=== PATIENT | female | born 1990 | race Caucasian/White ===

== ENCOUNTER 2018-03-17 12:13 | Emergency (ER) | payer MEDICAID, SELFPAY ==
[2018-03-17 12:15] VITALS: BP 143/89; PULSE 110; RESP 16; TEMP 36.9; O2SAT 99; BMI 23.8
--- NOTE | 2018-03-17 12:50 | ED.VISSUMM ---
- ER Visit Summary Date of Service: 03/17/18 Chief Complaint: Left thumb laceration History of Present Illness: The patient is a 27 F who presents with laceration to her left thumb that occurred today while at work. Patient was using a knife to cut partially when she accidentally cut her left thumb. Patient is right-hand dominant. Patient states her last tetanus was within the last 5 years. Patient states she has been applying pressure to the thumb. Patient admits to some tingling over the tip of her left thumb. Patient denies any weakness. Physical Examination: Vital signs are stable. Patient is afebrile. Patient is in no acute distress. Skin is warm dry. There is a 3 cm full-thickness linear laceration over the dorsal aspect of the left thumb. There is a partial extensor tendon laceration. There is good strength with extension of the IP and MP joints. There are no sensory deficits noted. There are no foreign bodies noted. Capillary refill is less than 2 seconds in all digits. The remaining physical exam is within normal limits. Emergency Department Course and Treatment: Left thumb laceration was cleaned and irrigated with copious amounts of normal saline. The wound was closed with 5 simple #4-0 nylon sutures under sterile technique. Patient tolerated the procedure well. Bacitracin gauze dressing was applied. Patient was also placed in a thumb spica splint. Patient was instructed to follow-up with her primary care physician in 5-7 days. Patient understood and was agreeable with the plan. All questions were answered. Disposition: Discharged home Impression: Left thumb laceration This note was generated with [employer] dictation software. It may contain incorrect words, spelling, and punctuation that were not noted in review of the chart prior to signing ED Disposition - Plan for ED Patient: Disposition: Home or Assisted Living Chief Complaint: Laceration Diagnosis: Laceration of left thumb Instructions: ED Laceration Hand Referrals: Bouchra Negron MD [Primary Care Provider] -
--- NOTE | 2018-03-17 14:22 | ED.DCSUM_ITS ---
- ER Visit Summary Date of Service: 03/17/18 Chief Complaint: [] History of Present Illness: The patient is a 27 F [] Physical Examination: [] Test Results: [] Emergency Department Course and Treatment: [] Treatment Plan: [] Disposition: [] Impression: [] This note was generated with [employer] dictation software. It may contain incorrect words, spelling, and punctuation that were not noted in review of the chart prior to signing ED Disposition - Plan for ED Patient: Disposition: Home or Assisted Living Chief Complaint: Laceration Diagnosis: Laceration of left thumb Instructions: ED Laceration Hand Referrals: Bouchra Negron MD [Primary Care Provider] -
[2018-03-17 14:41] VITALS: BP 116/79; PULSE 70; RESP 18; O2SAT 98
== END 2018-03-17 14:43 | disposition home or self-care (01) ==
PROVIDERS: Emergency Provider Emergency Medicine; Family Provider Family Medicine; PCP Family Medicine
DX: S61.012A Laceration without foreign body of left thumb without damage to nail, initial encounter (principal); S66.222A Laceration of extensor muscle, fascia and tendon of left thumb at wrist and hand level, initial encounter; W26.0XXA Contact with knife, initial encounter; Y93.9 Activity, unspecified; Y92.89 Other specified places as the place of occurrence of the external cause; Y99.0 Civilian activity done for income or pay; Z79.899 Other long term (current) drug therapy
CPT/HCPCS: 12002; 99283

== ENCOUNTER 2019-04-04 15:45 | Emergency (ER) | payer OTHER, SELFPAY ==
[2019-04-04 15:46] VITALS: BP 132/82; PULSE 117; RESP 16; TEMP 36.6; O2SAT 97; BMI 21.0
--- NOTE | 2019-04-04 16:14 | CT_ITS ---
STUDY: CT ABDOMEN AND PELVIS WITHOUT CONTRAST REASON FOR EXAM: Female, 28 years old. Right flank pain. History of kidney stones. Celiac disease. RADIATION DOSAGE (If Supplied By Facility): CTDIvol = ( 6.23 ) mGy, DLP = ( 301.74 ) mGycm TECHNIQUE: Transaxial images were obtained from the dome of the diaphragm to the symphysis pubis without oral contrast, and without intravenous contrast. Sagittal and coronal images were reconstructed. Individualized dose optimization techniques were used for this CT. COMPARISON: None. FINDINGS: The visualized lung bases are unremarkable. The visualized portions of the heart are within normal limits. Normal liver. Normal gallbladder and extrahepatic biliary system. Normal spleen. Normal pancreas. Normal bilateral adrenal glands. Normal right kidney. Normal left kidney. No definite renal or ureteral stones are seen. There is no hydronephrosis on either side. Evaluation of the GI tract is limited by absence of oral contrast. Cannot exclude stomach wall thickening. No dilated loops of bowel or evidence for obstruction. Cannot exclude segmental thickening of the aguilar of the small or large bowel. Cannot exclude enteritis or colitis. Moderate diffuse fecal retention. Appendix within normal limits. Normal abdominal aorta. Normal inferior vena cava. Normal retroperitoneum. Normal urinary bladder. Normal visualized uterus. IUD in typical normal location. Normal abdominal wall. Normal osseous structures. CT/Abdomen/Pelvis without Cont IMPRESSION: Normal unenhanced CT of the abdomen and pelvis. Electronically Signed: Tremaine Sauer MD at 17:15 EDT , Service support ,
[2019-04-04] MEDS: Ketorolac 30 MG/ML Syringe IM (16:19)
[2019-04-04 16:23] LABS: Mucous, Urine 0 SEEN /hpf (<or=2+)
[2019-04-04 16:32] LABS: Color, Urine Yellow (Yellow); Glucose, Dipstick Normal (Normal); Ketone-Dipstick Negative (Negative); Leukocyte Esterase-Dipstick 25 /ul (Negative); Nitrite-Dipstick Negative (Negative); Occult Blood-Urine 25 /ul (Negative); Protein-Dipstick Negative (Negative); Specific Gravity, Urine 1.015 (1.002-1.030); Urine Bilirubin Dipstick Negative (Negative); Urine Clarity Clear (Clear); Urine Urobilinogen Normal (Normal)
[2019-04-04 16:35] LABS: Internal QC Validated? YES +Cl - CLEAR BKGD; Pregnancy, Urine Negative Negative
[2019-04-04 16:43] LABS: White Blood Cells 5-10 SEEN /hpf (0-5)
[2019-04-04 16:44] LABS: Bacteria 2+ /hpf (None Seen); Red Blood Cells-Urine 0-5 SEEN /hpf (0-5); Squamous Epithelial Cells - UA 0-5 SEEN /hpf (5-10); Yeast-Urine 2+ /hpf (None Seen)
--- NOTE | 2019-04-04 17:40 | ED.VIS.GEN ---
History of Present Illness Chief Complaint: Back Narrative: Patient presenting for evaluation secondary to flank pain. Patient reports that she hurt her back approximately a month or so ago. She states that that pain has been relatively continuous, but over the course of the last week she has had right flank pain that goes through to her right chest. No exacerbating relieving factors, but the patient states that she has some urinary hesitancy and dysuria. No blood in her urine. No fevers nausea or vomiting. No numbness or weakness bowel or bladder incontinence. Patient denies any history of kidney stones. Review of systems otherwise negative. Past Medical History - Allergies and Home Meds Allergies/Adverse Reactions: Allergies gluten Allergy (Verified 12/20/16 20:17) Abd cramps/diarrhea Constipation shellfish derived Allergy (Verified 12/20/16 20:17) Swelling citalopram [From Celexa] Adverse Reaction (Verified 12/20/16 20:17) Other Suidical thoughts Primary Care Physician: Gerardo Llanes MD [Primary Care Provider] - 1 Week Past Medical History: None Surgical History: - - D&C recently Smoking Status: Never smoker Review of Systems All systems negative except as indicated Genitourinary: Reports: Dysuria Musculoskeletal: Reports: Back pain Physical Exam Vital Signs/Narrative: Vital Signs Temp Pulse Resp BP Pulse Ox 04/04/19 15:46 97.8 F 117 H 16 132/82 H 97 General: Well nourished, Well developed, No Acute Distress Head: Normocephalic, Atraumatic Eyes: Perrl, EOMI ENT: Moist mucous membranes, No rhinorrhea Neck: Supple, Nontender Cardiovascular: Regular rate, Regular rhythm, No murmurs Respiratory: No distress, CTA bilaterally, Chest nontender Abdomen: Soft, Nontender, Nondistended, Normal bowel sounds Back: Normal Inspection, - - Right sided paraspinal thoracic tenderness with some tenderness over the right flank Extremities: Nontender, No edema Skin: Normal color, No rash Neurological: Alert, Oriented x3, Cranial nerves II-XII grossly intact, Normal Strength, Normal Sensation, - - 5 out of 5 strength at the hip knee ankle and foot normal sensation over all dermatomes Psychological: Normal affect, Normal Mood Diagnostic/Tx/Re-eval - Medical Decision Making Patient presented with flank pain. CT imaging was obtained and was negative for stone or acute process. Urinalysis shows some evidence of infection. Patient does not have any evidence of sepsis. I believe that she is appropriate for outpatient treatment. Patient will be sent home with a course of Bactrim, she was given strict return instructions, she voiced understanding of these and the patient was discharged. ED Disposition - Plan for ED Patient: Disposition: Home or Assisted Living Diagnosis: UTI (urinary tract infection) Instructions: Urinary Tract Infections in Women Prescriptions: Smz/Tmp Ds [Bactrim Ds] 1 tab PO BID #14 tab Prescription Printed Referrals: Gerardo Llanes MD [Primary Care Provider] - 1 Week
[2019-04-04] MEDS: Smz/Tmp Ds Tablet 1 TABLET PO (17:58)
[2019-04-04 17:59] VITALS: BP 104/74; PULSE 83; RESP 16; O2SAT 100
== END 2019-04-04 18:00 | disposition home or self-care (01) ==
PROVIDERS: Emergency Provider Emergency Medicine; Family Provider Family Medicine; PCP Family Medicine
DX: N39.0 Urinary tract infection, site not specified (principal); Z79.899 Other long term (current) drug therapy
CPT/HCPCS: 74176; 81001; 81025; 96372; 99283

== ENCOUNTER 2019-04-22 11:04 | Emergency (ER) | payer OTHER, SELFPAY ==
[2019-04-22 11:04] VITALS: BP 120/64; PULSE 100; RESP 16; TEMP 36.6; O2SAT 97; BMI 22.5
--- NOTE | 2019-04-22 11:20 | EKG12_ITS ---
Test Reason : CP Blood Pressure : / mmHG Vent. Rate : 097 BPM Atrial Rate : 097 BPM P-R Int : 114 ms QRS Dur : 080 ms QT Int : 340 ms P-R-T Axes : 081 089 069 degrees QTc Int : 431 ms Normal sinus rhythm with sinus arrhythmia Possible Biatrial enlargement Abnormal ECG Confirmed by LEROY CASTILLO, HUONG ([id number]), non linear editor MARSHA ERNST ([id number]) on 04/23/2019 2:11:00 PM Referred By: OCTAVIA Confirmed By:HUONG HARPER MD
--- NOTE | 2019-04-22 11:21 | CT_ITS ---
STUDY: CTA CHEST REASON FOR EXAM: Female, 28 years old. Chest pain, rib pain. RADIATION DOSAGE (If Supplied By Facility): CTDIvol = ( 5.12 ) mGy, DLP = ( 130.00 ) mGycm TECHNIQUE: The examination was performed with the intravenous administration of 75 IV Isovue 370. Post-processing of the angiographic images was performed, with multiplanar reformation and 3D reconstruction. Individualized dose optimization techniques were used for this CT. COMPARISON: None. FINDINGS: Normal enhancement of the main pulmonary artery and right and left pulmonary arteries. Normal enhancement of the bilateral peripheral pulmonary arteries. There is no demonstrated pulmonary embolism. Normal thoracic aorta and visualized great vessels. There is no demonstrated aortic dissection. Normal heart and pericardium. Normal mediastinum. Normal hilar regions. Normal visualized trachea and bronchi. The lungs are well expanded. Normal pulmonary parenchyma. Normal pleura. Normal chest wall structures. Normal osseous structures. Normal visualized upper abdomen. CT/CTA Chest W/WO Contrast IMPRESSION: Normal CTA chest examination, without a demonstrated pulmonary embolism or arterial dissection. Electronically Signed: Shaka Sheehan MD at 12:36 EDT Tel , Service support ,
--- NOTE | 2019-04-22 11:33 | ED.VISSUMM ---
- ER Visit Summary Date of Service: 04/22/19 Chief Complaint: Chest pain History of Present Illness: The patient is a 28 F who presents the emergency department with a right chest pain. Patient states that she was seen about 3 weeks ago for a right side pain that was felt to possibly be urinary tract related. She had a CT scan of the abdomen pelvis without contrast is essentially negative. She Bactrim and states symptoms never went away. She followed up with primary care about a week and a half ago and had blood work that came back negative and was felt that this is musculoskeletal and she received naproxen and Flexeril. States when she woke up today she went to pick child up and felt severe pain and took those medicines are not helping. She states that it is severe worse with movement touch and coughing. No fevers. No rashes. Physical Examination: Afebrile vital signs are stable Gen: Well-nourished well-developed Head: Normocephalic atraumatic Eyes: Perrl EOMI ENT: TMs clear no rhinorrhea moist mucous membranes Neck: Supple no lymphadenopathy no JVD nontender CVS: Regular rate rhythm no murmurs normal S1-S2 Respiratory: No distress clear to auscultation bilaterally chest nontender Abdomen: Soft nontender nondistended normal bowel sounds no masses Back: Palpation of the right scapular region and along the mid thoracic ribs into the axilla and anterior chest wall. Extremity: Nontender no edema Skin: Normal color no rash Neuro: alert orientated ?3 CN II-XII intact normal strength sensation reflexes gait cerebellar Psych: She does tearful but eventually stops crying talks without tears. Test Results: EKG shows a normal sinus rhythm at a rate of 97. CBC CMP negative. Urinalysis is negative troponin is negative urine drug screen is positive for cannabinoids. CT Fernanda of the chest is also negative. Emergency Department Course and Treatment: Received Toradol and Valium and has been improved. I believe this to be musculoskeletal in nature. Patient will be discharged home with supportive care instructions to avoid heavy lifting or strenuous activity encourage her to follow-up with her primary care physician Impression: 1. Muscular skeletal back and chest pain This note was generated with [employer] dictation software. It may contain incorrect words, spelling, and punctuation that were not noted in review of the chart prior to signing ED Disposition - Plan for ED Patient: Disposition: Home or Assisted Living Instructions: Chest Wall Strain Prescriptions: Diazepam [Valium] 5 mg PO Q8 PRN #12 tab PRN Reason: Muscle Spasm Prescription Printed Referrals: Gerardo Llanes MD [Primary Care Provider] - 1 Week
[2019-04-22] MEDS: diazePAM 5 MG Tablet PO (11:39)
[2019-04-22] MEDS: Ketorolac 30 MG/ML Syringe IV (11:39)
[2019-04-22 11:45] LABS: Absolute Lymphocyte Count 1.64 X10^3/uL (0.83-4.51); Absolute Neutrophil Count 2.6 X10^3/uL (2.0-7.7); Basophil# 0.07 X10^3/uL; Basophil% 1.4 % (0-1); Eosinophil# 0.26 X10^3/uL; Eosinophils% 5.2 % (0-5); Hematocrit 40.3 % (37-47); Hemoglobin 13.1 g/dL (12.0-15.0); Lymphocyte # 1.64 X10^3/ul (4.0); Lymphocyte % 32.8 % (19-41); Mean Corp Hgb Conc 32.5 g/dL (32-36); Mean Corpuscular Hgb 31.1 pg (27.0-32.0); Mean Corpuscular Volume 95.7 fL (81-99); Mean Platelet Vol. 9.8 fl (6.2-12.0); Monocyte# 0.47 X10^3/uL; Monocyte% 9.4 % (0-10); NRBC Flagged by Analyzer 0 % (0-5); Neutrophil # 2.55 X10^3/uL (2.7-7.7); Platelet Count 255 K/mm3 (150-450); RBC Distribution Width SD 46.5 fl (35.1-43.9); Red Blood Count 4.21 M/mm3 (4.2-5.4)
[2019-04-22 11:58] LABS: Bacteria 0 SEEN /hpf (None Seen); Mucous, Urine 0 SEEN /hpf (<or=2+); Red Blood Cells-Urine 0 SEEN /hpf (0-5); White Blood Cells 0 SEEN /hpf (0-5)
[2019-04-22 11:59] LABS: ALB/GLOB Ratio 1.4 RATIO (0.9-2.4); AST(SGOT) 10 U/L (15-37); Alanine Aminotransfer ALT/SGPT 14 U/L (13-56); Albumin, Serum 4.3 g/dL (3.2-5.0); Alkaline Phosphatase 50 U/L (45-117); Anion Gap 4 (5-15); BUN 14 mg/dL (7-18); BUN/Creat Ratio 16.2 RATIO (10-20); Calcium,Total 8.9 mg/dL (8.5-10.1); Chloride 105 mmol/L (98-107); Creatinine, Serum 0.86 mg/dL (0.55-1.02); EST Glomerular Filtration Rate 83 mL/min (>60); Est Glom Filt Rate - Afr Amer 100 mL/min (>60); Estimated Creatinine Clearance 77.03 ml/min; Globulin 3.1 g/dL (2.2-4.2); Glucose 90 mg/dL (74-106); Potassium 4.6 mmol/L (3.5-5.1); Protein, Total 7.4 g/dL (6.4-8.2); Sodium Level 140 mmol/L (136-145)
[2019-04-22 12:02] LABS: Color, Urine Yellow (Yellow); Glucose, Dipstick Normal (Normal); Ketone-Dipstick Negative (Negative); Leukocyte Esterase-Dipstick Negative /ul (Negative); Nitrite-Dipstick Negative (Negative); Occult Blood-Urine Negative /ul (Negative); Protein-Dipstick Negative (Negative); Specific Gravity, Urine 1.005 (1.002-1.030); Urine Bilirubin Dipstick Negative (Negative); Urine Clarity Sl. Cloudy (Clear); Urine Urobilinogen Normal (Normal)
[2019-04-22 12:04] LABS: Internal QC Validated? YES +Cl - CLEAR BKGD
[2019-04-22 12:05] LABS: Pregnancy, Urine Negative Negative
[2019-04-22 12:08] LABS: Squamous Epithelial Cells - UA 0-5 SEEN /hpf (5-10)
[2019-04-22 12:25] LABS: Amphetamine Urine VISTA NEGATIVE (<1000 ng/mL); Barbiturate Urine VISTA NEGATIVE (< 200 ng/mL); Benzodiazepine Urine VISTA NEGATIVE (< 200 ng/mL); Cocaine Urine VISTA NEGATIVE (< 300 ng/mL); Ecstacy Urine VISTA NEGATIVE (< 500 ng/mL); Methadone Urine VISTA NEGATIVE (< 300 ng/mL); PCP Urine VISTA NEGATIVE (< 25 ng/mL); THC Urine VISTA POSITIVE (< 50 ng/mL); Vista UDS pH Range 6
[2019-04-22 13:15] VITALS: BP 119/74; PULSE 61; RESP 16; O2SAT 97
== END 2019-04-22 13:15 | disposition home or self-care (01) ==
PROVIDERS: Emergency Provider Emergency Medicine; Family Provider Family Medicine; PCP Family Medicine
DX: R07.89 Other chest pain (principal); M54.9 Dorsalgia, unspecified; R05 Cough; F32.9 Major depressive disorder, single episode, unspecified; Z79.899 Other long term (current) drug therapy; Z87.891 Personal history of nicotine dependence
CPT/HCPCS: 71275; 80053; 80307; 81001; 81025; 84484; 85025; 93005; 96374; 99284; Q9967; A4216

== ENCOUNTER 2019-08-11 17:13 | Emergency (ER) | payer BC, SELFPAY ==
[2019-08-11] VITALS (9 sets, daily range): BP systolic 116–134; BP diastolic 60–94; PULSE 81–126; RESP 16–18; TEMP 37.2–37.6; O2SAT 97–100; BMI 22.3
--- NOTE | 2019-08-11 19:05 | ED.VISSUMM ---
- ER Visit Summary Date of Service: 08/11/19 Chief Complaint: Syncopal episodes History of Present Illness: The patient is a 28 F who presents with syncopal episodes that have been intermittent over the past 3 weeks. Patient states she has been passing out losing consciousness. Patient is unsure how long she is out for. Patient admits to subjective fevers at home. Patient states her temperature is 100. Patient also admits to some intermittent sweats. Patient admits to a sore throat and rhinorrhea. Patient admits to some nausea but denies any vomiting. Patient denies any chest pain but admits to some slight shortness of breath. Physical Examination: Vital signs are stable except for tachycardia of 126. Patient is afebrile. Patient is in no acute distress. Oral mucosa is pink and moist. Neck is supple. Trachea is midline. There is no JVD. Heart was regular rate and rhythm. Lungs are clear and equal bilaterally. Abdomen is soft. Bowel sounds are normal. There is no tenderness. Cranial nerves II through XII are intact. There are no focal motor or sensory deficits noted. Test Results: EKG showed a normal sinus rhythm with a rate of 77. There are no acute ST or T wave changes. CBC, comprehensive metabolic profile, urinalysis, troponin, and serum hCG were obtained were all normal. CT scan of the brain was obtained. There is no acute intracranial abnormality. CTA of the chest was obtained. There is no evidence of pulmonary embolism. Emergency Department Course and Treatment: Patient was given IV fluids. Patient felt better on reevaluation. Patient was instructed to follow-up with her primary care physician in 5 to 7 days for further evaluation of her syncope. Patient understood and was agreeable with the plan. All questions were answered. Disposition: Discharge home Impression: Syncope This note was generated with [employer] dictation software. It may contain incorrect words, spelling, and punctuation that were not noted in review of the chart prior to signing ED Disposition - Plan for ED Patient: Disposition: Home or Assisted Living Diagnosis: Syncope Instructions: SYNCOPE, Unk Cause Referrals: Gerardo Llanes MD [Primary Care Provider] - 3-5 Days
--- NOTE | 2019-08-11 19:07 | CT_ITS ---
STUDY: CTA CHEST REASON FOR EXAM: Female, 28 years old. SYNCOPE, DIZZINESS, WEAKNESS RADIATION DOSAGE (If Supplied By Facility): CTDIvol = ( 6.64 ) mGy, DLP = ( 142.90 ) mGycm TECHNIQUE: The examination was performed with the intravenous administration of 75 CC ISOVUE 370. Post-processing of the angiographic images was performed, with multiplanar reformation and 3D reconstruction. Individualized dose optimization techniques were used for this CT. COMPARISON: April 22, 2019 FINDINGS: Normal enhancement of the main pulmonary artery and right and left pulmonary arteries. Normal enhancement of the bilateral peripheral pulmonary arteries. There is no demonstrated pulmonary embolism. Normal thoracic aorta and visualized great vessels. There is no demonstrated aortic dissection. Normal heart and pericardium. Normal mediastinum. Normal hilar regions. Normal visualized trachea and bronchi. The lungs are well expanded. Lungs are clear of acute infiltration. There is a tiny calcified granuloma in right upper lobe Normal pleura. Normal chest wall structures. Normal osseous structures. Normal visualized upper abdomen. No significant change since prior exam CT/CTA Chest W/WO Contrast IMPRESSION: Tiny calcified granuloma in right upper lobe. No acute abnormality. No evidence for pulmonary embolus Electronically Signed: Osbaldo Umana MD at 21:40 EST , Service support ,
--- NOTE | 2019-08-11 19:07 | CT_ITS ---
STUDY: CT BRAIN WITHOUT CONTRAST REASON FOR EXAM: Female, 28 years old. SYNCOPE, DIZZINESS, WEAKNESS RADIATION DOSAGE (If Supplied By Facility): CTDIvol = ( 44.99 ) mGy, DLP = ( 745.49 ) mGycm TECHNIQUE: Transaxial CT imaging of the brain was performed without administration of intravenous contrast material. Individualized dose optimization techniques were used for this CT. COMPARISON: No relevant priors. FINDINGS: Normal soft tissue structures. Normal calvarium. Normal size ventricles and extra-axial spaces for the patient''s age. Normal white matter tracts of the cerebral hemispheres. Normal basal ganglia and thalami. Normal brainstem. Normal cerebellum. There is no intracranial hemorrhage. There are no findings of an acute ischemic infarction. Normal visualized paranasal sinuses. CT/Brain/Head without Contrast IMPRESSION: Normal unenhanced CT scan of the brain. Electronically Signed: Osbaldo Umana MD at 21:35 EST , Service support ,
[2019-08-11] MEDS: 0.9% Normal Saline 1,000 ML 1000 ML IV (19:33)
[2019-08-11 19:42] LABS: Bacteria 0 SEEN /hpf (None Seen); Mucous, Urine 0 SEEN /hpf (<or=2+); Red Blood Cells-Urine 0 SEEN /hpf (0-5); White Blood Cells 0 SEEN /hpf (0-5)
[2019-08-11 19:43] LABS: Color, Urine Yellow (Yellow); Glucose, Dipstick Normal (Normal); Ketone-Dipstick Negative (Negative); Leukocyte Esterase-Dipstick Negative /ul (Negative); Nitrite-Dipstick Negative (Negative); Occult Blood-Urine 10 /ul (Negative); Protein-Dipstick Negative (Negative); Specific Gravity, Urine 1.015 (1.002-1.030); Urine Bilirubin Dipstick Negative (Negative); Urine Clarity Clear (Clear); Urine Urobilinogen Normal (Normal)
[2019-08-11 19:44] LABS: Absolute Lymphocyte Count 2.14 X10^3/uL (0.83-4.51); Absolute Neutrophil Count 6.6 X10^3/uL (2.0-7.7); Basophil# 0.07 X10^3/uL; Basophil% 0.7 % (0-1); Eosinophil# 0.12 X10^3/uL; Eosinophils% 1.3 % (0-5); Hematocrit 43.1 % (37-47); Hemoglobin 14.1 g/dL (12.0-15.0); Lymphocyte # 2.14 X10^3/ul (4.0); Lymphocyte % 22.6 % (19-41); Mean Corp Hgb Conc 32.7 g/dL (32-36); Mean Corpuscular Hgb 31.1 pg (27.0-32.0); Mean Corpuscular Volume 95.1 fL (81-99); Mean Platelet Vol. 9.7 fl (6.2-12.0); Monocyte# 0.47 X10^3/uL; NRBC Flagged by Analyzer 0 % (0-5); Neutrophil # 6.62 X10^3/uL (2.7-7.7); Platelet Count 305 K/mm3 (150-450); RBC Distribution Width CV 13.2 % (11.6-14.6); RBC Distribution Width SD 46.8 fl (35.1-43.9); Red Blood Count 4.53 M/mm3 (4.2-5.4); White Blood Count 9.5 K/mm3 (4.4-11.0)
[2019-08-11 20:34] LABS: Internal QC Validated? YES +Cl - CLEAR BKGD; Pregnancy, Serum, hCG Quali. NEGATIVE Negative
[2019-08-11 20:38] LABS: Squamous Epithelial Cells - UA 0-5 SEEN /hpf (5-10)
[2019-08-11 20:44] LABS: ALB/GLOB Ratio 1.2 RATIO (0.9-2.4); AST(SGOT) 20 U/L (15-37); Alanine Aminotransfer ALT/SGPT 23 U/L (13-56); Albumin, Serum 4.4 g/dL (3.2-5.0); Alkaline Phosphatase 52 U/L (45-117); Anion Gap 4 (5-15); BUN 10 mg/dL (7-18); BUN/Creat Ratio 9.9 RATIO (10-20); Calcium,Total 9.1 mg/dL (8.5-10.1); Chloride 108 mmol/L (98-107); Creatinine, Serum 1.01 mg/dL (0.55-1.02); EST Glomerular Filtration Rate 69 mL/min (>60); Est Glom Filt Rate - Afr Amer 83 mL/min (>60); Estimated Creatinine Clearance 65.59 ml/min; Globulin 3.6 g/dL (2.2-4.2); Glucose 113 mg/dL (74-106); Potassium 3.5 mmol/L (3.5-5.1); Sodium Level 140 mmol/L (136-145)
--- NOTE | 2019-08-11 22:17 | EKG12_ITS ---
Test Reason : DYSRHYTHMIA Blood Pressure : / mmHG Vent. Rate : 077 BPM Atrial Rate : 077 BPM P-R Int : 138 ms QRS Dur : 080 ms QT Int : 380 ms P-R-T Axes : 064 081 055 degrees QTc Int : 430 ms Normal sinus rhythm Normal ECG Confirmed by LEROY CASTILLO, HUONG ([id number]), legal editor SAWYER CAMPOS ([id number]) on 08/13/2019 11:01:06 AM Referred By: SAGE Confirmed By:HUONG HARPER MD
== END 2019-08-11 23:08 | disposition home or self-care (01) ==
PROVIDERS: Emergency Provider Emergency Medicine; Family Provider Family Medicine; PCP Family Medicine
DX: R55 Syncope and collapse (principal); J02.9 Acute pharyngitis, unspecified; J34.89 Other specified disorders of nose and nasal sinuses; R11.0 Nausea; R00.0 Tachycardia, unspecified; R06.02 Shortness of breath; M54.2 Cervicalgia; M54.9 Dorsalgia, unspecified; F32.9 Major depressive disorder, single episode, unspecified; F41.9 Anxiety disorder, unspecified; Z79.899 Other long term (current) drug therapy
CPT/HCPCS: 70450; 71275; 80053; 81001; 84484; 84703; 85025; 93005; 96360; 99285; J7030; Q9967; A4216

== ENCOUNTER 2020-05-30 15:42 | Emergency (ER) | payer OTHER, SELFPAY ==
[2019-08-11 17:14] VITALS: BMI 22.3
[2020-05-30 15:42] VITALS: BP 134/86; PULSE 106; RESP 16; TEMP 36.6; O2SAT 99; BMI 22.1
--- NOTE | 2020-05-30 16:18 | CT_ITS ---
STUDY: CT BRAIN WITHOUT CONTRAST REASON FOR EXAM: Female, 29 years old. HEADACHE IN BASE OF RIGHT SKULL RADIATION DOSAGE (If Supplied By Facility): CTDIvol = ( 44.99 ) mGy, DLP = ( 796.11 ) mGycm TECHNIQUE: Transaxial CT imaging of the brain was performed without administration of intravenous contrast material. Individualized dose optimization techniques were used for this CT. COMPARISON: 08/11/2019 FINDINGS: Normal soft tissue structures. Normal calvarium. Normal size ventricles and extra-axial spaces for the patient''s age. Normal white matter tracts of the cerebral hemispheres. Normal basal ganglia and thalami. Normal brainstem. Normal cerebellum. There is no intracranial hemorrhage. There are no findings of an acute ischemic infarction. Normal visualized paranasal sinuses. CT/Brain/Head without Contrast IMPRESSION: Normal unenhanced CT scan of the brain. Electronically Signed: iDma Hall MD ([place]) at 16:50 EDT , Service support ,
--- NOTE | 2020-05-30 16:18 | EKG12_ITS ---
Test Reason : GENERAL ILLNESS Blood Pressure : / mmHG Vent. Rate : 093 BPM Atrial Rate : 093 BPM P-R Int : 116 ms QRS Dur : 076 ms QT Int : 346 ms P-R-T Axes : 067 066 042 degrees QTc Int : 430 ms Normal sinus rhythm Normal ECG Confirmed by BG CASTILLO, RUBY ([id number]), news video editor BEKA AYERS ([id number]) on 06/01/2020 10:28:16 AM Referred By: PC Confirmed By:RUBY PEDERSON MD
--- NOTE | 2020-05-30 16:20 | ED.VIS.GEN ---
History of Present Illness Chief Complaint: General Illness Narrative: Patient presents with generalized weakness, lightheadedness, a posterior headache that started gradually. She did have some alcohol last night and wondered through the words. Per her boyfriend she was acting somewhat bizarre. She seems to be acting normal today. She denies any fever or chills. She has no chest pain or shortness of breath she has no lower extremity edema or calf pain. She has quite a bit of lightheadedness, she feels like she is going to pass out however she tells me that she has not passed out yet. She denies , she has an IUD. Past Medical History - Allergies and Home Meds Allergies/Adverse Reactions: Allergies clindamycin Allergy (Verified 05/30/20 15:45) Hives gluten Allergy (Verified 05/30/20 15:45) Abd cramps/diarrhea Constipation shellfish derived Allergy (Verified 05/30/20 15:45) Swelling citalopram [From Celexa] Adverse Reaction (Verified 05/30/20 15:45) Other Suidical thoughts Primary Care Physician: Gerardo Llanes MD [Primary Care Provider] - Past Medical History: None Surgical History: - - D&C recently Smoking Status: Former smoker Review of Systems All systems negative except as indicated General: Denies: Fever Eyes: Denies: Visual changes - bilaterally ENT: Denies: Sore throat Cardiovascular: Denies: Chest pain, Palpitations, Heart racing Respiratory: Denies: Dyspnea, Cough Gastrointestinal: Denies: Abdominal pain, Nausea, Vomiting Genitourinary: Denies: Dysuria Musculoskeletal: Denies: Myalgias, Neck pain, Back pain Skin: Denies: Rash Neurological: Reports: Headache. Denies: Weakness, Parasthesia, Numbness Psych: Denies: Anxiety Endocrine: Denies: Polydipsia Hematologic: Denies: Easy bruising, Easy bleeding Allergy: Denies: Swelling of the mouth, Swelling of the tongue Physical Exam Vital Signs/Narrative: Vital Signs Temp Pulse Resp BP Pulse Ox 05/30/20 15:42 97.8 F 106 H 16 134/86 H 99 General: Well nourished, - - Does not appear in any distress, she does not appear anxious. She is a well-appearing female Head: Normocephalic Eyes: Perrl, EOMI. Negative for: Pale conjunctiva ENT: Dry mucous membranes Neck: Supple Cardiovascular: Regular rate, Regular rhythm Respiratory: No distress, CTA bilaterally Abdomen: Soft, Nontender Back: Nontender. Negative for: Normal Inspection Extremities: Nontender. Negative for: No edema Skin: Normal color Neurological: Alert, Oriented x3, Cranial nerves II-XII grossly intact, Normal Strength Psychological: Normal affect Diagnostic/Tx/Re-eval - Rhythm Strip Rhythm Strip: Sinus Rhythm Rate: 93 Ectopy: None - EKG Initial EKG Interpretation: - - Sinus rhythm with a rate of 93. Normal MT and QTc intervals. No ischemic changes. Interpreted by emergency doctor - Medical Decision Making She has a normal ED work-up. She is got nonspecific symptoms, I am unsure about the etiology of her symptoms I do not believe there is anything emergent at this time she can follow-up with her PCP for further testing. ED Disposition - Plan for ED Patient: Disposition: Home or Assisted Living Diagnosis: Dizziness Instructions: ED Dizziness [facility] Referrals: Gerardo Llanes MD [Primary Care Provider] - 3-5 Days
[2020-05-30] MEDS: 0.9% Normal Saline 1,000 ML 1000 ML IV (16:30)
--- NOTE | 2020-05-30 16:40 | RAD_ITS ---
STUDY: X-RAY CHEST REASON FOR EXAM: Female, 29 years old. C/O CHEST, BACK AND SHOULDER PRESSURE WITH INABILITY TO CONTROL HER BODY MOVEMENTS. TECHNIQUE: AP COMPARISON: None. FINDINGS: EKG leads project over the chest. The lungs are clear and expanded. There is no demonstrated pleural abnormality. Normal size heart. Normal mediastinum and delphine. Normal visualized pulmonary arteries. Normal visualized aortic arch and descending thoracic aorta. Normal visualized thoracic spine. There is a small fracture of the posterolateral right sixth rib with some callus formation. There is no demonstrated abnormality of the visualized soft tissue structures of the upper abdomen. RAD/Chest 1 View (Portable) IMPRESSION: 1. No acute cardiopulmonary process. 2. Right posterior/lateral right sixth rib fracture, incompletely healed. Electronically Signed: Dima Hall MD ([place]) at 17:05 EDT , Service support ,
[2020-05-30 16:46] LABS: Absolute Lymphocyte Count 1.74 X10^3/uL (0.83-4.51); Absolute Neutrophil Count 5.1 X10^3/uL (2.0-7.7); Basophil# 0.06 X10^3/uL; Basophil% 0.8 % (0-1); Eosinophil# 0.15 X10^3/uL; Eosinophils% 1.9 % (0-5); Hematocrit 40.3 % (37-47); Hemoglobin 13.4 g/dL (12.0-15.0); Lymphocyte # 1.74 X10^3/ul (4.0); Lymphocyte % 22.6 % (19-41); Mean Corp Hgb Conc 33.3 g/dL (32-36); Mean Corpuscular Hgb 31.8 pg (27.0-32.0); Mean Corpuscular Volume 95.5 fL (81-99); Mean Platelet Vol. 9.8 fl (6.2-12.0); Monocyte# 0.62 X10^3/uL; NRBC Flagged by Analyzer 0 % (0-5); Neutrophil # 5.12 X10^3/uL (2.7-7.7); Neutrophil % 66.4 % (47-70); Platelet Count 323 K/mm3 (150-450); RBC Distribution Width CV 13.3 % (11.6-14.6); RBC Distribution Width SD 46.8 fl (35.1-43.9); Red Blood Count 4.22 M/mm3 (4.2-5.4); White Blood Count 7.7 K/mm3 (4.4-11.0)
[2020-05-30 17:02] LABS: ALB/GLOB Ratio 1.2 RATIO (0.9-2.4); AST(SGOT) 15 U/L (15-37); Alanine Aminotransfer ALT/SGPT 20 U/L (13-56); Albumin, Serum 4.1 g/dL (3.2-5.0); Alkaline Phosphatase 50 U/L (45-117); Anion Gap 5 (5-15); BUN 11 mg/dL (7-18); Calcium,Total 8.5 mg/dL (8.5-10.1); Chloride 109 mmol/L (98-107); Creatinine, Serum 0.85 mg/dL (0.55-1.02); EST Glomerular Filtration Rate 84 mL/min (>60); Est Glom Filt Rate - Afr Amer 102 mL/min (>60); Estimated Creatinine Clearance 80.78 ml/min; Globulin 3.4 g/dL (2.2-4.2); Glucose 91 mg/dL (74-106); Protein, Total 7.5 g/dL (6.4-8.2); Sodium Level 142 mmol/L (136-145); Thyroid Stim Hormone (TSH) 0.67 uIU/mL (0.358-3.74)
[2020-05-30 17:19] LABS: Mucous, Urine 0 SEEN /hpf (<or=2+)
[2020-05-30 17:27] LABS: Color, Urine Yellow (Yellow); Glucose, Dipstick Normal (Normal); Ketone-Dipstick Negative (Negative); Leukocyte Esterase-Dipstick 25 /ul (Negative); Nitrite-Dipstick Negative (Negative); Occult Blood-Urine 25 /ul (Negative); Protein-Dipstick Negative (Negative); Specific Gravity, Urine 1.015 (1.002-1.030); Urine Bilirubin Dipstick Negative (Negative); Urine Clarity Clear (Clear); Urine Urobilinogen Normal (Normal)
[2020-05-30 17:39] LABS: Bacteria RARE /hpf (None Seen); Internal QC Validated? YES +Cl - CLEAR BKGD; Pregnancy, Urine Negative Negative; Red Blood Cells-Urine 0-5 SEEN /hpf (0-5); Squamous Epithelial Cells - UA 0-5 SEEN /hpf (5-10); White Blood Cells 0-5 SEEN /hpf (0-5)
[2020-05-30 17:56] VITALS: BP 119/75; PULSE 67; RESP 15; O2SAT 96
== END 2020-05-30 17:57 | disposition home or self-care (01) ==
PROVIDERS: Emergency Provider Emergency Medicine; PCP Family Medicine
DX: R42 Dizziness and giddiness (principal); R53.1 Weakness; R51.9 Headache, unspecified; Z79.899 Other long term (current) drug therapy; Z97.5 Presence of (intrauterine) contraceptive device; Z87.891 Personal history of nicotine dependence
CPT/HCPCS: 70450; 71045; 80053; 81001; 81025; 84443; 84484; 85025; 93005; 96360; 99283; J7030; A4216

== ENCOUNTER 2020-08-01 10:39 | Emergency (ER) | payer SELFPAY ==
[2020-08-01 10:40] VITALS: BP 133/78; PULSE 88; RESP 16; TEMP 36.6; O2SAT 97; BMI 22.3
--- NOTE | 2020-08-01 10:57 | ED.VIS.GEN ---
History of Present Illness Chief Complaint: Other, Pain/Inj Informant: Patient Narrative: Patient is a 29-year-old female who presents to the emergency department for right chest wall pain. 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 At some point she twisted too far and had severe pain on the right side. She woke up this morning and had difficulty moving due to the pain. She believes that she has broken ribs on that side. No recent trauma to the area. She feels like she cannot take a deep breath in due to the pain. No chest pain elsewhere besides on the right. No history of DVT/PE. No history of CAD. She has been coughing and is completing a course of antibiotics and steroids for this. She did have a coronavirus test which was negative. Past Medical History - Allergies and Home Meds Allergies/Adverse Reactions: Allergies clindamycin Allergy (Verified 08/01/20 10:47) Hives gluten Allergy (Verified 08/01/20 10:47) Abd cramps/diarrhea Constipation shellfish derived Allergy (Verified 08/01/20 10:47) Swelling citalopram [From Celexa] Adverse Reaction (Verified 08/01/20 10:47) Other Suidical thoughts Primary Care Physician: Gerardo Llanes MD [Primary Care Provider] - 3-5 Days if not improving Surgical History: - - D&C recently Smoking Status: Former smoker Review of Systems All systems negative except as indicated General: Denies: Chills, Fever, Sweats Eyes: Denies: Visual changes - bilaterally, Diplopia ENT: Denies: Rhinorrhea, Sore throat Cardiovascular: Reports: Chest pain - Chest wall on the right lateral side. Denies: Palpitations Respiratory: Reports: Dyspnea, Cough. Denies: Dyspnea on exertion Gastrointestinal: Denies: Abdominal pain, Nausea, Vomiting Genitourinary: Denies: Dysuria, Hematuria, Frequency Musculoskeletal: Denies: Back pain, Extremity Pain Skin: Denies: Rash, Wounds Neurological: Denies: Headache, Weakness, Numbness Physical Exam Vital Signs/Narrative: Vital Signs Temp Pulse Resp BP Pulse Ox 08/01/20 10:40 97.8 F 88 16 133/78 H 97 Inital Vital Signs reviewed: Yes General: Well nourished, Well developed, No Acute Distress, - - When I walked into the room patient holding phone up to her talking in full sentences. Once hanging up she refuses to move her arms and shoulders. Head: Normocephalic, Atraumatic Eyes: Perrl, EOMI ENT: Moist mucous membranes, No rhinorrhea Neck: Supple, Nontender Cardiovascular: Regular rate, Regular rhythm, No murmurs Respiratory: No distress, CTA bilaterally - Patient refuses to take a deep breath in so exam is limited., Chest tenderness - Right lateral ribs. No crepitus palpable. No overlying skin changes. Abdomen: Soft, Nontender, Nondistended Back: Nontender, Normal Inspection Extremities: Nontender, No edema. Negative for: Calf Tenderness Skin: Normal color, No rash Neurological: Alert, Oriented x3, Normal Strength, Normal Sensation Psychological: Normal affect, Normal Mood Diagnostic/Tx/Re-eval Chest X-Ray - ED: 2 View - 2 view x-ray interpreted by myself. No acute consolidation. No pneumothorax. There does appear to be an old rib fracture on the right lateral side at the sixth rib. Normal cardiac silhouette. Normal mediastinum. No acute cardiopulmonary abnormalities. - Medical Decision Making Patient presents the emerge department for right rib pain. This all started after she twisted while sweeping yesterday. She believes that she has broken ribs on that side. Upon arrival to the emergency department she is satting well on room air. She is not tachypneic or tachycardic. She does have reproducible tenderness on that side. No concern for PE/CAD. This does seem more musculoskeletal. Will check a chest x-ray and treat symptomatically with a dose of IM Toradol. Patient's x-ray did not show any evidence of pneumothorax or new rib fractures. There was the old healing rib fracture present. Will recommend symptomatic care. I did write a prescription for both Naprosyn and Lidoderm patches. She otherwise is to follow-up with her PCP. Warning signs and symptoms which to return to the ED are reviewed with her. She understands and is agreeable this plan. All questions were answered. ED Disposition - Plan for ED Patient: Disposition: Home or Assisted Living Diagnosis: Chest wall pain Instructions: ED Chest Wall Pain, Costochondritis, ED Rib Contusion or Minor Fracture Prescriptions: Lidocaine [Lidoderm Patch] 1 patch TOPICAL DAILY 5 Days #5 patch Transmission Status: Received by [facility] Naproxen [Naprosyn] 500 mg PO BID PRN #20 tab Transmission Status: Received by [facility] Referrals: Gerardo Llanes MD [Primary Care Provider] - 3-5 Days if not improving
--- NOTE | 2020-08-01 11:09 | RAD_ITS ---
STUDY: X-RAY CHEST REASON FOR EXAM: Female, 29 years old. healing rib fx, pt moved the wrong way and now right side rib pain -- cough TECHNIQUE: Single AP portable view of the chest. COMPARISON: 05/30/2020 FINDINGS: The lungs are clear and expanded. There is no demonstrated pleural abnormality. Normal size heart. Normal mediastinum and delphine. Normal visualized pulmonary arteries. Normal visualized aortic arch and descending thoracic aorta. Normal visualized thoracic spine. Healed fracture the posterior lateral right sixth rib. There is no demonstrated abnormality of the visualized soft tissue structures of the upper abdomen. RAD/Chest PA and Lateral IMPRESSION: Healed fracture the posterior lateral right sixth rib. Electronically Signed: Shaka Sheehan MD at 12:00 EST Tel , Service support ,
[2020-08-01] MEDS: Ketorolac 30 MG/ML Syringe IM (11:34)
== END 2020-08-01 12:15 | disposition home or self-care (01) ==
PROVIDERS: Emergency Provider Emergency Medicine; PCP Family Medicine
DX: R07.89 Other chest pain (principal); R05 Cough; Z79.899 Other long term (current) drug therapy; Z87.891 Personal history of nicotine dependence
CPT/HCPCS: 71046; 96372; 99282